=== PATIENT | female | born 1965 ===

== ENCOUNTER 2018-03-29 15:48 | Emergency (ER) | payer MEDICAID, OTHER ==
[2018-03-29 15:55] VITALS: BP 143/87; PULSE 76; RESP 18; TEMP 98.2; O2SAT 100
[2018-03-29 16:22] LABS: SQUAMOUS EPITHIAL 5 /hpf (0-5); URINE BACTERIA MOD (<OCC); URINE BILIRUBIN NEGATIVE (NEGATIVE); URINE BLOOD 2+ (NEGATIVE); URINE CLARITY Hazy (Clear); URINE COLOR Yellow (YELLOW); URINE GLUCOSE (UA) NORMAL (Normal); URINE LEUKOCYTE ESTERASE 3+ Leu/uL (Negative); URINE PROTEIN 1+ mg/dL (NEGATIVE); URINE UROBILINOGEN NORMAL mg/dL (0.2-1.0); WBC CLUMPS MOD /hpf
--- NOTE | 2018-03-29 16:22 | C.PDOC ---
History Of Present Illness 52 y/o female pt with hx of HTN and asthma presents to the ER c/o dysuria, frequency and urgency for the last x3 weeks, worse in the past x2 days. Pt also now has hematuria and suprapubic pain. Pt denies nausea, vomiting, fever, chills and vaginal bleeding. Time Seen by Provider: 03/29/18 15:57 Chief Complaint (Nursing): Female Genitourinary History Per: Patient History/Exam Limitations: no limitations Onset/Duration Of Symptoms: Days (x3 weeks, worse in x2 days) Current Symptoms Are (Timing): Worse Past Medical History Reviewed: Historical Data, Nursing Documentation, Vital Signs Vital Signs: Last Vital Signs Temp 98.2 F 03/29/18 15:52 Pulse 76 03/29/18 15:52 Resp 18 03/29/18 15:52 BP 143/87 03/29/18 15:52 Pulse Ox 100 03/29/18 15:52 - Medical History PMH: Gall Bladder Disease, HTN (Not on medication now) Surgical History: Cholecystectomy, (x 3) - [facility] Procedures INJECT/INFUSE NEC (12/01/13) LAPAROSCOPIC CHOLECYSTECTOMY (10/07/14) Family History: States: Diabetes, Hypertension - Social History Hx Alcohol Use: Yes Hx Substance Use: No Review Of Systems Constitutional: Negative for: Fever, Chills Gastrointestinal: Positive for: Abdominal Pain (suprapubic pain). Negative for: Nausea, Vomiting Genitourinary: Positive for: Dysuria, Frequency, Hematuria. Negative for: Vaginal Bleeding, Pelvic Pain Skin: Negative for: Rash Neurological: Negative for: Weakness, Numbness Physical Exam - Physical Exam Appears: Non-toxic, No Acute Distress Skin: Warm, Dry Head: Normacephalic Eye(s): bilateral: Normal Inspection, EOMI Chest: Symmetrical Cardiovascular: Rhythm Regular Respiratory: Normal Breath Sounds, No Rales, No Rhonchi, No Wheezing Gastrointestinal/Abdominal: Soft, Tenderness (suprapubic ), No Distention, No Guarding, No Rebound Back: No CVA Tenderness Extremity: Normal ROM (x4) Neurological/Psych: Oriented x3, Normal Speech ED Course And Treatment O2 Sat by Pulse Oximetry: 100 (RA) Pulse Ox Interpretation: Normal Medical Decision Making Medical Decision Making: Plans: -- Urine CX -- UA Disposition - Disposition Referrals: [facility] [Outside] Disposition: HOME/ ROUTINE Disposition Time: 16:27 Condition: GOOD Additional Instructions: Beber lquidos en aumento; Se recomienda agua o jugo de arndano. [place] antibiticos hasta que termine, incluso si se siente mejor antes. Regrese a la alex de emergencias para tratar la fiebre, los vmitos, la incapacidad de retener los antibiticos o cualquier otra inquietud. Twila un seguimiento con sandoval mdico en la prxima semana. Drink increased fluids; water or cranberry juice recommended. Take antibiotics until finished even if feeling better sooner. Return to ER for fever, vomiting, unable to keep antibiotics down or any other concerns. Follow up with your doctor in the next week. Prescriptions: Nitrofurantoin Macrocrystals [Macrobid] 100 mg PO BID #14 cap Instructions: Acute Cystitis (DC) Forms: Gen Discharge Inst Tu[place], [place] (Tuvaluan) Print Language: TELUGU - Clinical Impression Clinical Impression: Cystitis, acute - PA / ASSISTANT DIRECTOR OF ADMISSIONS / Resident Statement / has reviewed & agrees with the documentation as recorded. - Scribe Statement The provider has reviewed the documentation as recorded by the Kunal Echeverria Do All medical record entries made by the Scribe were at my direction and personally dictated by me. I have reviewed the chart and agree that the record accurately reflects my personal performance of the history, physical exam, medical decision making, and the department course for this patient. I have also personally directed, reviewed, and agree with the discharge instructions and disposition.
== END 2018-03-29 16:40 | disposition home or self-care (01) ==
LOC: C.ER 15:48
DX: N30.01 Acute cystitis with hematuria (principal)

== ENCOUNTER 2018-07-31 09:35 | Outpatient (CLI) | payer MEDICAID | END 2018-07-31 09:36 | disposition home or self-care (01) | LOC: C.USIC 09:35 | DX: Z12.31 Encounter for screening mammogram for malignant neoplasm of breast (principal); R10.2 Pelvic and perineal pain ==